=== PATIENT | female | born 2000 | race African-American/Black ===

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

== ENCOUNTER → 2018-07-19 14:39 | Outpatient (CLI) | payer MEDICAID, SELFPAY ==
--- NOTE | 2018-07-19 14:47 | US_ITS ---
US OB transvaginal HISTORY: ITS.REASON: OB T/V US for Dates ORDERING PHYSICIAN: Luis Shields MD PATIENT AGE: 17 years COMPARISON: None FINDINGS: An intrauterine gestational sac is present with a pole with a crown-rump length of 1.73cm correlating to gestational age of 8 weeks 2 days. heart tones are present with an FHR of 141 bpm's. Yolk sac is noted. The amnion and chorion have not yet fused. Adnexa: There is a bilocular left ovarian cyst measuring 8.5 x 5.5 cm. IMPRESSION: Live intrauterine gestation at 8 weeks 2 days as described above. Estimated due date by Ultrasound is 02/26/2019 Biloculated large left ovarian cyst at 8.5 x 5.5 cm
[2018-07-23 12:30] LABS: Neisseria gonorrhoeae, NAA Negative
== END ==
PROVIDERS: Visit Provider Nurse Practitioner Obstetrics & Gynecology
DX: O26.841 Uterine size-date discrepancy, first trimester (principal)
CPT/HCPCS: 76817; 87491; 87591

== ENCOUNTER → 2018-07-19 16:36 | Outpatient (CLI) | payer MEDICAID, SELFPAY | PROVIDERS: Visit Provider Nurse Practitioner Obstetrics & Gynecology | DX: Z34.90 Encounter for supervision of normal pregnancy, unspecified, unspecified trimester (principal) | CPT/HCPCS: 87491; 87591 ==

== ENCOUNTER 2018-08-26 18:25 | Emergency (ER) | payer MEDICAID, SELFPAY ==
[2018-08-26 18:35] VITALS: BP 117/70; PULSE 106; RESP 20; TEMP 37.1; O2SAT 98; BMI 30.2
[2018-08-26 18:59] LABS: Microscopic, Urine URINE MICROSCOPIC (MICROSCOPIC)
[2018-08-26 19:02] LABS: Appearance,Urine CLEAR (Clear); Bilirubin,Urine Negative (Negative); Blood, Urine 2+ (Negative); Color,Urine YELLOW (Yellow); Glucose,Urine (UA) Negative (Negative); Ketones,Urine Negative (Negative); Leukocyte Esterase,Urine Negative (Negative); Nitrate,Urine Negative (Negative); Protein,Urine Negative (Negative); Specific Gravity, Urine >= 1.030 (1.005-1.030); Urobilinogen,Urine 0.2 EU/dl (0.2)
--- NOTE | 2018-08-26 19:05 | PC.NURSE ---
pt states up to bathroom and had dark brown discharge when she wiped
--- NOTE | 2018-08-26 19:05 | HMH.EDGENADL ---
ED Disposition Clinical Impression: Vaginal bleeding during Disposition: Home, Self-Care Condition on Discharge: Good Instructions: DI for Vaginal Bleeding During Additional Instructions: Rest, no strenuous activity this weekend. No sexual intercourse for 2 days. Follow-up with Dr. Shields next week. Return to the emergency room if severe bleeding or severe pain. Referrals: Provider,Referral, [Referring] - - Critical Care Critical Care Time: No Attestation: On 08/26/18, the high probability of a clinically significant, sudden or life threatening deterioration of the following system(s) required my full and direct attention, intervention and personal management. The time I documented below is in addition to time spent performing reported procedures but includes the following listed in this critical care notation. Medical Decision Making - Daniel Inquiry Pt receiving controlled substance: No Vital Signs: 08/26/18 18:35 Temperature 98.7 F Temperature Source Oral Pulse Rate [Left Radial] 106 H Respiratory Rate 20 Blood Pressure [Right Arm] 117/70 Blood Pressure Mean [Right Arm] 85 Blood Pressure Source [Right Arm] Automatic Cuff Blood Pressure Position [Right Arm] Sitting 02 Sat by Pulse Oximetry 98 Oxygen Delivery Method Room Air - Lab Data Lab Results 08/26/18 18:55: Urine Color Yellow, Urine Appearance Clear, Urine pH 6.0, Ur Specific [place] >= 1.030, Urine Protein Negative, Urine Glucose (UA) Negative, Urine Ketones Negative, Urine Blood 2+, Urine Nitrate Negative, Urine Bilirubin Negative, Urine Urobilinogen 0.2, Ur Leukocyte Esterase Negative, Urine RBC Occasional, Urine WBC Occasional, Ur Squamous Epith Cells Occasional, Urine Bacteria Trace 08/26/18 19:18: WBC 11.7, RBC 4.29, Hgb 12.9, Hct 37.3, MCV 87.0, MCH 30.2, MCHC 34.7, RDW 13.0, Plt Count 322, MPV 7.2 L, Neut % (Auto) 77.7, Lymph % (Auto) 17.3, [place] % (Auto) 3.7, Eos % (Auto) 1.2, Baso % (Auto) 0.2, Neut # (Auto) 9.1 H, Lymph # (Auto) 2.0, [place] # (Auto) 0.4, Eos # (Auto) 0.1, Baso # (Auto) 0.0 08/26/18 19:18: Sodium 135 L, Potassium 3.3 L, Chloride 101, Carbon Dioxide 24, Anion Gap 13.3, BUN 9, Creatinine 0.67, Estimated Creat Clear 170, Estimated GFR 113, Est GFR ( Amer) 137, Glucose 96, Calcium 9.6, Total Bilirubin 0.2, AST 8 L, ALT 17, Alkaline Phosphatase 61, Total Protein 7.5, Albumin 3.1 L, Globulin 4.4 H, Albumin/Globulin Ratio 0.7 L, HCG, Quant 11952 H 08/26/18 19:18: Blood Type O Positive Result diagrams: 08/26/18 19:18 08/26/18 19:18 - Physician Consults Physician Consulted: Henry Time: 19:16 Reason -: Obstetrical Eval/Care Comment/Response: Threatened miscarriage precautions. Follow-up in the office next week. General Adult HPI - General Chief complaint: Vaginal Bleeding Stated complaint: 13 WKs Preg Bleeding Time Seen by Provider: 08/26/18 19:05 Mode of Arrival: Ambulatory Limitations: No Limitations Description of Symptoms (Recalled from ER Triage Doc. by RN): to ed per pvt car pt approx 13weeks preg c/o vag spotting starting approx 30mins scow captain states only when she wipes denies abd pain states she has had N/V since preg. - History of Present Illness HPI narrative: 30 minutes prior to arrival started having some vaginal bleeding. She says she first noted after she wiped when she went to the bathroom. Since then she only produces blood when she wipes. No blood on her underwear. No passage of clots. No pain. She is prima , 13 weeks gestation . Stopper Maker is Dr. Munroe, she has had a visit. She says they called Dr. Shields, they were told Dr. Figueroa would call back, but they did not receive a call so they came to the emergency room. - Related Data Home Medications Medication Instructions Recorded Confirmed 1 tab PO DAILY 07/19/18 08/26/18 vitamin,calcium,himbeujw-iowc-hiwok acid tablet raNITIdine HCl [Ranitidine HCl] 150 mg PO BID 08/26/18
--- NOTE | 2018-08-26 19:10 | PC.NURSE ---
paged dr reed at this time
--- NOTE | 2018-08-26 19:12 | PC.NURSE ---
MILTON LEES speaking with Dr. Figueroa
[2018-08-26 19:27] LABS: Bacteria,Urine Trace /lpf; RBC,Urine Occasional #/hpf (0-3); Squamous Epithelial Cell,Urine Occasional #/hpf (0-5); WBC,Urine Occasional #/hpf (0-3)
[2018-08-26 19:55] LABS: Basophils % 0.2 % (0.1-2.0); Eosinophils # 0.1 K/mm3 (0.0-0.4); Eosinophils % 1.2 % (0.1-12.0); Hematocrit 37.3 % (37.0-47.0); Hemoglobin 12.9 g/dL (12.2-16.2); Lymphocytes % 17.3 % (10-50); Mean Corpuscular HGB Conc 34.7 g/dL (31.8-35.4); Mean Corpuscular Hemoglobin 30.2 pg (27.0-31.2); Mean Platelet Volume 7.2 fl (7.4-10.4); Monocytes # 0.4 K/mm3 (0.1-1.0); Monocytes % 3.7 % (1.7-9.3); Neutrophils # 9.1 K/mm3 (1.8-7.8); Neutrophils % 77.7 % (37.0-80.0); Platelet Count 322 K/mm3 (142-424); Red Blood Count 4.29 M/mm3 (4.20-5.40); White Blood Count 11.7 K/mm3 (4.5-13.0)
[2018-08-26 20:12] LABS: Alanine Aminotransferase 17 U/L (12-78); Albumin Level 3.1 gm/dL (3.4-5.0); Albumin/Globulin Ratio 0.7 (1.1-1.8); Alkaline Phosphatase 61 U/L (46-116); Anion Gap 13.3 mEq/L (5-15); Aspartate Amino Transferase 8 U/L (15-37); Bilirubin,Total 0.2 mg/dL (0.2-1.0); Blood Urea Nitrogen 9 mg/dL (7-18); Calcium 9.6 mg/dL (8.5-10.1); Carbon Dioxide 24 mmol/L (21.0-32.0); Chloride 101 mmol/L (98-107); Creatinine Clearance Estimated 170 mL/min (50-200); Creatinine,Serum 0.67 mg/dL (0.55-1.02); Estimated Glomerular Filt Rate 113 ml/min (>60); GFR (African American) 137 ML/MIN (>60); Globulin 4.4 gm/dl (1.3-3.2); Glucose 96 mg/dL (74-106); HCG,Quantitative 30466 mIU/mL; Potassium 3.3 mmoL/L (3.5-5.1); Sodium 135 mmol/L (136-145); Total Protein,Serum 7.5 gm/dL (6.4-8.2)
[2018-08-26 20:26] VITALS: BP 138/75; PULSE 85; RESP 18; O2SAT 99
--- NOTE | 2018-08-26 20:26 | PC.NURSE ---
MILTON LEES at bedside.
[2018-08-26 21:12] VITALS: BP 124/64; PULSE 94; RESP 16; TEMP 36.8; O2SAT 98
== END 2018-08-26 21:13 | disposition home or self-care (01) ==
PROVIDERS: Emergency Provider Emergency Medicine; PCP Nurse Practitioner Obstetrics & Gynecology
DX: O20.9 Hemorrhage in early pregnancy, unspecified (principal); Z3A.13 13 weeks gestation of pregnancy; F12.10 Cannabis abuse, uncomplicated; F17.210 Nicotine dependence, cigarettes, uncomplicated
CPT/HCPCS: 80053; 81001; 84702; 85025; 86900; 86901; 99283

== ENCOUNTER → 2018-08-30 08:45 | Outpatient (CLI) | payer MEDICAID, SELFPAY ==
--- NOTE | 2018-08-30 09:01 | US_ITS ---
US OB transvaginal HISTORY: ITS.REASON: US OB- Vaginal Bleeding ORDERING PHYSICIAN: Luis Shields MD PATIENT AGE: 17 years COMPARISON: None FINDINGS: An intrauterine gestational sac is present with a pole with a crown-rump length of [place]-rump lengthcm correlating to gestational age of Gestational age. heart tones are present with an FHR of Heart rate bpm's. Yolk sac is noted. The amnion and chorion have not yet fused. Adnexa: Adnexa. IMPRESSION: Live intrauterine gestation at 9 weeks 2 days as described above. Estimated due date by Ultrasound is US OB transvaginal: INDICATION: ITS.REASON: US OB- Vaginal Bleeding ORDERING PHYSICIAN: Luis Shields MD PATIENT AGE: 17 years TECHNIQUE: ultrasound transabdominal scanning. COMPARISON: No previous relevant studies. FINDINGS: There is a single live fetus present in transverse position. heart and body motion noted. Cervix appears closed and measures 4 cm in length. Facet is posterior and high grade one.. Measurements: Average ultrasound age 14w2d. Gestational Age `4w2d. Estimated due date by ultrasound age 1002/26/2019. Estimated weight 92g grams. BPD = 14w3d OFD = 14w3d HC = 14w2d AC = 14w1d FL = 14w2d Growth Percentile= 28% Heart Rate = 147 HC/AC is 1.22 (1.14-1.31). CI is 77% (70-86%). FL/BPD is 57%. FL/AC is 19%. There are bilateral ovarian cysts with a septated cyst on the left measuring 8 x 6 cm. A 2.4 cm cyst is present on the right. IMPRESSION: Live intrauterine gestation at 14 weeks 2 days. Posterior placenta. No retroplacental hemorrhage or previa. Large septated left ovarian cyst at 8 x 6 cm.
== END ==
PROVIDERS: Visit Provider Nurse Practitioner Obstetrics & Gynecology
DX: O46.90 Antepartum hemorrhage, unspecified, unspecified trimester (principal)
CPT/HCPCS: 76817

== ENCOUNTER → 2018-09-05 14:58 | Outpatient (CLI) | payer MEDICAID, SELFPAY | PROVIDERS: Visit Provider Nurse Practitioner Obstetrics & Gynecology | DX: Z34.00 Encounter for supervision of normal first pregnancy, unspecified trimester (principal); Z36.0 Encounter for antenatal screening for chromosomal anomalies | CPT/HCPCS: 36415 ==

== ENCOUNTER → 2018-10-05 14:36 | Outpatient (CLI) | payer MEDICAID, SELFPAY ==
--- NOTE | 2018-10-05 14:39 | US_ITS ---
US OB /maternal detail: INDICATION: ITS.REASON: US OB Complete ORDERING PHYSICIAN: Luis Shields MD PATIENT AGE: 18 years TECHNIQUE: ultrasound transabdominal scanning. COMPARISON: No previous relevant studies. FINDINGS: Single viable intrauterine gestation. Breech position. Placenta: Posterior placenta grade 1. There is average amount fluid. The cervix appears satisfactory. Closed and measuring 4 cm in length. Complete survey performed and was unremarkable on the submitted images as in PACS. No discrete anomalies identified on survey imaging by technologist. Active fetus. Three-vessel cord with satisfactory umbilical cord insertion. 4- chamber heart noted. Survey of brain & ventricles unremarkable. Face and neck survey unremarkable. Diaphragm and chest views unremarkable. Abdomen: Both kidneys noted and unremarkable. Stomach noted and satisfactory. Spine: Survey of the spine satisfactory with no anomalies identified nor imaged. Both arms and legs noted. Amniotic Fluid: Adequate. Maternal adnexa: No significant findings. Measurements: Average ultrasound age 19w4d. Gestational Age 19w3d. Estimated due date by ultrasound age 1002/25/2019. Estimated weight 300 grams. BPD = 19w3d OFD = 19w6d HC = 19w0d AC = 19w5d FL = 19w5d Growth Percentile= 54% Heart Rate = 144 Cerebellum = 19w2d Humerus = 19w6d HC/AC is 1.12 (1.09-1.26). CI is 78% (70-86%). FL/BPD is 70%. FL/AC is 22%. Incidental note is made of a 7 x 4 x 5 cm complex left ovarian cyst which contains low-level internal echoes consistent with hemorrhagic cyst . IMPRESSION: 1. There is a single live fetus in breech presentation with an average ultrasound age of 19 weeks and 4 days. All parameters correlate. No obvious anomalies. Fetus is active. Please see above for detailed. 2. Complex 7 x 4 x 5 cm left ovarian cyst
== END ==
PROVIDERS: Visit Provider Nurse Practitioner Obstetrics & Gynecology
DX: Z36.0 Encounter for antenatal screening for chromosomal anomalies (principal)
CPT/HCPCS: 76811

== ENCOUNTER 2018-10-20 12:36 | Emergency (ER) | payer MEDICAID, SELFPAY ==
[2018-10-20 12:53] VITALS: BP 116/69; PULSE 84; RESP 18; TEMP 37.7; O2SAT 100; BMI 32.2
--- NOTE | 2018-10-20 13:06 | HMH.EDUTC ---
[facility] [place] Clinical Impression: Acute bronchitis Qualifiers: Bronchitis organism: unspecified organism Qualified Code(s): J20.9 - Acute bronchitis, unspecified Sinusitis Qualifiers: Sinusitis location: unspecified location Chronicity: acute Recurrence: non-recurrent Qualified Code(s): J01.90 - Acute sinusitis, unspecified Disposition: Home, Self-Care Condition on Discharge: Good Instructions: Sinusitis, Acute Bronchitis, DI for Sinusitis, DI for Acute Bronchitis Additional Instructions: Call your OB doctor and let them know about you being sick and taking antibiotics. Take the medications as prescribed. Follow up with your regular doctor. GO TO THE ER IF YOU HAVE WORSENING SYMPTOMS Prescriptions: Azithromycin [Z-Prashant 250mg Tab] 250 mg PO UD DOSE PK #6 tab Referrals: Provider,Referral, MD [Primary Care Provider] - Time of Disposition: 13:14 Medical Decision Making - Medical Records Medical records reviewed: Yes: I reviewed the patient's medical records. - Daniel Inquiry Pt receiving controlled substance: No Daniel was queried for this patient: No Vital Signs: 10/20/18 12:53 10/20/18 13:18 Temperature 99.8 F H 99.8 F H Temperature Source Oral Oral Pulse Rate 84 Pulse Rate [Left Radial] 84 Respiratory Rate 18 18 Blood Pressure 116/69 Blood Pressure [Right Arm] 116/69 Blood Pressure Mean [Right Arm] 84 Blood Pressure Source Automatic Cuff Blood Pressure Source [Right Arm] Automatic Cuff Blood Pressure Position Sitting Blood Pressure Position [Right Arm] Sitting 02 Sat by Pulse Oximetry 100 Oxygen Delivery Method Room Air Room Air [facility] [place] - General Stated complaint: fever coughing and aches Time Seen by Provider: 10/20/18 13:07 Mode of Arrival: Ambulatory Source of Information: Patient Limitations: No Limitations Description of Symptoms (Recalled from Triage Doc. by RN): CHILLS ON AND OFF, COUGH, RUNNY NOSE, 21 WEEKS HEENT Symptoms (Recalled from RN notes): Yes Resp Symptoms (Recalled from RN notes): Yes Skin Symptoms (Recalled from RN notes): No MS Symptoms (Recalled from RN notes): No Functional Status (Recalled from RN notes): WNL - Related Data Home Medications Medication Instructions Recorded Confirmed 1 tab PO DAILY 07/19/18 09/28/18 vitamin,calcium,ifqtajif-ozir-axhpb acid tablet raNITIdine HCl [Ranitidine HCl] 150 mg PO BID 08/26/18 09/28/18 Previous Rx's Medication Instructions Recorded promethazine 12.5 mg tablet 12.5 mg PO TID PRN #30 tab 08/17/18 ondansetron HCl 4 mg tablet 4 mg PO .Q6hr PRN 5 Days #20 tab 08/30/18 Azithromycin [Z-Prashant 250mg Tab] 250 mg PO UD DOSE PK #6 tab 10/20/18 Allergies Allergy/AdvReac Type Severity Reaction Status Date / Time No Known Allergies Allergy Verified 09/28/18 16:21 - Worker's Comp Is this a Worker's Comp case?: No [facility] History - Hepatitis A Screen Drug use history?: No High risk sexual behaviors?: No History of sexually transmitted infection?: No Currently employed?: No Childcare worker?: No Do you have indoor plumbing?: Yes Do you have electricity?: Yes Attestation statement:: This patient has been screened for Hepatitis A risk factors. I have reviewed the patient's past medical history: Yes Medical History: Denies:: Cancer, Diabetes Mellitus Type 1, Diabetes Mellitus Type 2, Hypertension, MRSA Laterality Cases: Bilateral: Tonsillectomy Amputation: No Fractures: No - Social History Educational Level: Completed High School Smoking Status: Never smoker Tobacco Type: cigarettes Alcohol Intake: never Substance Use Type: marijuana Occupational Status: unemployed Housing: house - Psychiatric History Expresses thoughts of harming self/others: None Suicide Plan Description: No Plan Family Hx:: No significant family history ROS Obtained: Yes All systems reviewed & no additional complaints - Genitourinary Female Genitourinary: Denies abnormal vaginal blee
--- NOTE | 2018-10-20 13:10 | ED_ITS ---
[facility] [place] Disposition Clinical Impression: Acute bronchitis Qualifiers: Bronchitis organism: unspecified organism Qualified Code(s): J20.9 - Acute bronchitis, unspecified Sinusitis Qualifiers: Sinusitis location: unspecified location Chronicity: acute Recurrence: non- recurrent Qualified Code(s): J01.90 - Acute sinusitis, unspecified Disposition: Home, Self-Care Condition on Discharge: Good Instructions: Sinusitis, Acute Bronchitis, DI for Sinusitis, DI for Acute Bronchitis Additional Instructions: Call your OB doctor and let them know about you being sick and taking antibiotics. Take the medications as prescribed. Follow up with your regular doctor. GO TO THE ER IF YOU HAVE WORSENING SYMPTOMS Prescriptions: Azithromycin [Z-Prashant 250mg Tab] 250 mg PO UD DOSE PK #6 tab Referrals: Provider,Referral, MD [Primary Care Provider] - Time of Disposition: 13:14 Medical Decision Making - Medical Records Medical records reviewed: Yes: I reviewed the patient's medical records. - Daniel Inquiry Pt receiving controlled substance: No Daniel was queried for this patient: No Vital Signs: 10/20/18 12:53 10/20/18 13:18 Temperature 99.8 F H 99.8 F H Temperature Source Oral Oral Pulse Rate 84 Pulse Rate [Left Radial] 84 Respiratory Rate 18 18 Blood Pressure 116/69 Blood Pressure [Right Arm] 116/69 Blood Pressure Mean [Right Arm] 84 Blood Pressure Source Automatic Cuff Blood Pressure Source [Right Arm] Automatic Cuff Blood Pressure Position Sitting Blood Pressure Position [Right Arm] Sitting 02 Sat by Pulse Oximetry 100 Oxygen Delivery Method Room Air Room Air [facility] [place] HPI - General Stated complaint: fever coughing and aches Time Seen by Provider: 10/20/18 13:07 Mode of Arrival: Ambulatory Source of Information: Patient Limitations: No Limitations Description of Symptoms (Recalled from Triage Doc. by RN): CHILLS ON AND OFF, COUGH, RUNNY NOSE, 21 WEEKS HEENT Symptoms (Recalled from RN notes): Yes Resp Symptoms (Recalled from RN notes): Yes Skin Symptoms (Recalled from RN notes): No MS Symptoms (Recalled from RN notes): No Functional Status (Recalled from RN notes): WNL - Related Data Home Medications Medication Instructions Recorded Confirmed 1 tab PO DAILY 07/19/18 09/28/18 vitamin,calcium,fiepcgnk-kihu-bekkv acid tablet raNITIdine HCl [Ranitidine HCl] 150 mg PO BID 08/26/18 09/28/18 Previous Rx's Medication Instructions Recorded promethazine 12.5 mg tablet 12.5 mg PO TID PRN #30 tab 08/17/18 ondansetron HCl 4 mg tablet 4 mg PO .Q6hr PRN 5 Days #20 tab 08/30/18 Azithromycin [Z-Prashant 250mg Tab] 250 mg PO UD DOSE PK #6 tab 10/20/18 Allergies Allergy/AdvReac Type Severity Reaction Status Date / Time No Known Allergies Allergy Verified 09/28/18 16:21 - Worker's Comp Is this a Worker's Comp case?: No [facility] History - Hepatitis A Screen Drug use history?: No High risk sexual behaviors?: No History of sexually transmitted infection?: No Currently employed?: No Childcare worker?: No Do you have indoor plumbing?: Yes Do you have electricity?: Yes [place]
[2018-10-20 13:18] VITALS: BP 116/69; PULSE 84; RESP 18; TEMP 37.7; O2SAT 100
== END 2018-10-20 13:19 | disposition home or self-care (01) ==
LOC: ER 12:39 → UTC 12:41
PROVIDERS: Emergency Provider Nurse Practitioner Family
DX: J20.9 Acute bronchitis, unspecified (principal); J01.90 Acute sinusitis, unspecified; Z3A.21 21 weeks gestation of pregnancy
CPT/HCPCS: 99201

== ENCOUNTER 2018-12-11 20:16 | Outpatient (CLI) | payer MEDICAID, SELFPAY ==
[2018-12-11 20:32] VITALS: BMI 38.2
[2018-12-11 21:38] LABS: Microscopic, Urine URINE MICROSCOPIC (MICROSCOPIC)
[2018-12-11 21:42] VITALS: BP 129/60; PULSE 90; RESP 16; TEMP 37.1; O2SAT 98; BMI 38.2
[2018-12-11 21:48] LABS: Appearance,Urine CLEAR (Clear); Bilirubin,Urine Negative (Negative); Blood, Urine Negative (Negative); Color,Urine YELLOW (Yellow); Glucose,Urine (UA) Negative (Negative); Ketones,Urine Negative (Negative); Leukocyte Esterase,Urine Negative (Negative); Nitrate,Urine Negative (Negative); Protein,Urine Negative (Negative); Specific Gravity, Urine >= 1.030 (1.005-1.030); Urobilinogen,Urine 0.2 EU/dl (0.2)
[2018-12-11 21:50] LABS: Amphetamine/Metha Screen,Urine Negative ng/mL (<1000); Barbiturates Screen,Urine Negative ng/mL (<200); Benzodiazepines Screen,Urine Negative ng/mL (<200); Cannabinoid Screen,Urine Positive ng/mL (<50); Cocaine Screen,Urine Negative ng/mL (<300); Methadone Screen,Urine Negative ng/mL (<300); Opiate Screen,Urine Negative ng/mL (<300); Phencyclidine Screen,Urine Negative ng/mL (<25)
== END 2018-12-11 22:10 | disposition home or self-care (01) ==
LOC: OBOUT 20:21 → OB 20:22
PROVIDERS: Visit Provider Obstetrics & Gynecology
DX: O26.853 Spotting complicating pregnancy, third trimester (principal); Z3A.29 29 weeks gestation of pregnancy
CPT/HCPCS: 59025; 80305; 81001

== ENCOUNTER 2020-02-02 15:46 | Emergency (ER) | payer OTHER, SELFPAY ==
[2020-02-02 15:47] VITALS: BP 138/95; PULSE 71; RESP 18; TEMP 36.5; O2SAT 99; BMI 36.8
[2020-02-02 15:58] VITALS: BP 149/86; PULSE 60; O2SAT 100
--- NOTE | 2020-02-02 16:03 | HMH.EDGENADL ---
ED Disposition Clinical Impression: Cholelithiasis Qualifiers: Cholelithiasis location: gallbladder Cholecystitis presence: without cholecystitis Biliary obstruction: with biliary obstruction Qualified Code(s): K80.21 - Calculus of gallbladder without cholecystitis with obstruction Disposition: Home, Self-Care Condition on Discharge: Fair Instructions: DI for Gallstones Additional Instructions: Percocet as needed for pain. Zofran as needed for nausea and vomiting. Low-fat, bland diet. Call Dr. Ha's office at 8 AM Wednesday morning to arrange appointment to be seen on Wednesday by him in his office. Nothing to eat or drink after midnight Wednesday night until you see Dr. Ha. Turn to the emergency room if intolerable pain, persistent vomiting, fever greater than 100 degrees, or jaundice. Additional instructions for CONTROLLED SUBSTANCES: You have been prescribed a medication that is a controlled substance. Controlled substances include pain medications known as opiates and sedative nerve medications known as benzodiazepines. Tramadol, fioricet, and gabapentin are also controlled substances. Some common opiates include: Codeine (such as Tylenol #3) Hydrocodone (Vicodin, Lortab, Lorcet, [place]) Oxycodone (Percocet, Percodan, Oxycodone, Oxy IR) Some common benzodiazepines include: Diazepam (Valium) Lorazepam (Ativan) Alprazolam (Xanax) Clonazepam (Klonopin) Oxazepam (Serax) All of these controlled substances are highly addictive and frequently abused. Misuse can and frequently does lead to addiction as well as overdose and . Medication should be stored in a locked cabinet or other secure storage unit. Do not store the medication in a motor vehicle. Short term supplies, 3 days or less, are prescribed because of the highly addictive nature of the medication. Any of the controlled substance medication NOT taken should be disposed of properly and NOT SAVED. The recommended method of disposing of unused medications is: Place the medicines in a sealable plastic bag. If the medicine is a solid, crush it or add water to dissolve it. Add something undesirable (cat litter, coffee grounds, etc.) Dispose of sealed bag in household trash Do not flush or pour unused medicines down a sink or drain. Controlled substances should not be shared, given away or sold. Because of the addictive nature and frequent abuse, these medications are sometimes stolen. These medications should be kept in a safe place where they cannot be stolen. Do not keep them in your car or purse. Lost or stolen prescriptions for controlled substances WILL NOT BE REFILLED in this emergency department, regardless of whether a police report was filed. Prescriptions: Oxycodone HCl/Acetaminophen [Percocet 5/325mg tablet] 1 tab PO Q6HP PRN #10 tab PRN Reason: Moderate To Severe Pain Transmission Status: Received by [facility] # Ondansetron [Zofran 4mg ODT] 4 mg PO TIDP PRN #10 tab.rapdis PRN Reason: Nausea And Vomiting Transmission Status: Received by [facility] # Referrals: Carine Tucker DO [Primary Care Provider] - Samm Ha MD [Staff Physician] - (Wednesday) - Critical Care Critical Care Time: No Attestation: On 02/02/20, the high probability of a clinically significant, sudden or life threatening deterioration of the following system(s) required my full and direct attention, intervention and personal management. The time I documented below is in addition to time spent performing reported procedures but includes the following listed in this critical care notation. Medical Decision Making - Medical Records Medical records reviewed: Yes: I reviewed the patient's medical records. - Daniel Inquiry Pt receiving controlled substance: Yes Daniel was queried for this patient: Yes Reference #:: [id number] Risks and benefits of using a controlled substance: were discussed with pt by me Comment
--- NOTE | 2020-02-02 16:16 | CT_ITS ---
PROCEDURE: CT ABDOMEN PELVIS W CON CLINICAL INDICATION: abdo pain Right upper quadrant pain COMPARISON: No exams were available for comparison TECHNIQUE: IV Contrast: 75ML OPTIRAY 350 Oral Contrast None Axial images obtained with sagittal and coronal reformats. All CT scans at the facility use one or more dose reduction, viz: automated exposure control, ma/kV adjustment per patient size (including targeted exams where dose is matched to indication, i.e. head), or iterative reconstruction technique. FINDINGS: LOWER THORAX: No acute finding ABDOMEN & PELVIS: Cholelithiasis is noted. The liver, spleen, adrenal glands, pancreas, and kidneys have an unremarkable appearance. There is a circum aortic left renal vein. No intestinal obstruction or free air. There appears to be at least 1 diverticulum of the sigmoid colon. No evidence of diverticulitis. There is a small umbilical hernia containing fat. No evidence of appendicitis. There is a 3.6 cm left ovarian cyst. No free fluid. No acute bony anomalies. IMPRESSION: 1. Cholelithiasis. 2. 3.6 cm left ovarian cyst. Dictated by: Trevon Murrieta MD 02/03/2020 07:16 Trevon Murrieta MD in [facility] 02/03/2020 07:16
[2020-02-02 16:19] VITALS: PULSE 60; O2SAT 99
--- NOTE | 2020-02-02 16:31 | PC.NURSE ---
v/s delayed due to IV insertion
[2020-02-02 16:37] VITALS: BP 123/83; PULSE 68; O2SAT 96
[2020-02-02 16:50] LABS: Microscopic, Urine URINE MICROSCOPIC (MICROSCOPIC)
[2020-02-02 16:53] LABS: Appearance,Urine CLEAR (Clear); Bilirubin,Urine 1+ (Negative); Blood, Urine Negative (Negative); Color,Urine YELLOW (Yellow); Glucose,Urine (UA) Negative (Negative); Ketones,Urine Negative (Negative); Leukocyte Esterase,Urine Negative (Negative); Nitrate,Urine Negative (Negative); Protein,Urine Negative (Negative); Urobilinogen,Urine 0.2 EU/dl (0.2)
[2020-02-02 16:54] LABS: Urine Pregnancy, HCG Qual. Negative (Negative)
[2020-02-02 16:55] LABS: Chloride 104 mmol/L (98-107)
[2020-02-02 16:56] LABS: Potassium 3.7 mmoL/L (3.5-5.1); Sodium 142 mmol/L (136-145)
[2020-02-02 16:58] LABS: Alanine Aminotransferase 314 U/L (12-78); Alkaline Phosphatase 146 U/L (38-126); Amylase 83 U/L (30-110); Anion Gap 10.7 mEq/L (5-15); Aspartate Amino Transferase 710 U/L (14-36); Bilirubin,Total 1.4 mg/dl (0.2-1.3); Blood Urea Nitrogen 10 mg/dl (7-17); Carbon Dioxide 31 mmol/L (22.0-30.0); Creatinine Clearance Estimated 152 mL/min (50-200); Estimated Glomerular Filt Rate 79 ml/min (>60); GFR (African American) 96 ML/MIN (>60); Glucose 120 mg/dl (74-100); Lipase 72 U/L (23-300)
[2020-02-02 16:59] LABS: Albumin Level 4.1 g/dl (3.5-5.0); Albumin/Globulin Ratio 1.2 (1.1-1.8); Calcium 9.7 mg/dl (8.4-10.2); Globulin 3.5 g/dL (1.3-3.2); Total Protein,Serum 7.6 g/dl (6.3-8.2)
[2020-02-02 17:33] VITALS: BP 131/85; PULSE 77; O2SAT 96
--- NOTE | 2020-02-02 17:42 | PC.NURSE ---
Dr Dilcia edwards.
--- NOTE | 2020-02-02 17:44 | PC.NURSE ---
Dr Fairbanks speaking with Dr. Ha
[2020-02-02 17:48] LABS: Basophils % 0.3 % (0.1-2.0); Eosinophils # 0.1 K/mm3 (0.0-0.4); Eosinophils % 0.7 % (0.1-12.0); Hematocrit 46.1 % (37.0-47.0); Hemoglobin 15.4 g/dL (12.2-16.2); Lymphocytes # 1.5 K/mm3 (0.7-4.5); Lymphocytes % 17.5 % (10-50); Mean Corpuscular HGB Conc 33.4 g/dL (31.8-35.4); Mean Corpuscular Hemoglobin 29.8 pg (27.0-31.2); Mean Corpuscular Volume 89.1 fl (81-99); Mean Platelet Volume 7.8 fl (7.4-10.4); Monocytes # 0.4 K/mm3 (0.1-1.0); Neutrophils # 6.7 K/mm3 (1.8-7.8); Neutrophils % 76.5 % (37.0-80.0); Platelet Count 393 K/mm3 (142-424); Red Blood Count 5.17 M/mm3 (4.20-5.40); Red Cell Distribution Width 13.9 % (11.5-17.5); White Blood Count 8.7 K/mm3 (4.8-10.8)
[2020-02-02 18:22] VITALS: BP 130/85; PULSE 55; RESP 17; TEMP 36.5; O2SAT 96
== END 2020-02-02 18:24 | disposition home or self-care (01) ==
PROVIDERS: Emergency Provider Emergency Medicine; PCP Pediatrics
DX: K80.21 Calculus of gallbladder without cholecystitis with obstruction (principal); K21.9 Gastro-esophageal reflux disease without esophagitis
CPT/HCPCS: 74177; 80053; 81001; 81025; 82150; 83690; 85025; 96365; 96375; 99284; J2405; Q9967

== ENCOUNTER → 2020-02-05 10:53 | Outpatient (CLI) | payer OTHER, SELFPAY ==
--- NOTE | 2020-02-05 10:59 | US_ITS ---
PROCEDURE: US GALLBLADDER CLINICAL INDICATION: gallbladder pain COMPARISON: CT CT ABDOMEN PELVIS W CON from 02/02/2020 FINDINGS: Pancreas: Unremarkable/Not well seen Liver: Unremarkable. There is appropriate direction of blood flow within a non dilated portal vein. Right kidney: Unremarkable appearing. No hydronephrosis. Gallbladder: There is a gallstone present. No gallbladder wall thickening, pericholecystic fluid, or biliary dilatation is evident. IMPRESSION: Cholelithiasis Dictated by: Trevon Murrieta MD 02/05/2020 15:13 Trevon Murrieta MD in [facility] 02/05/2020 15:13
== END ==
PROVIDERS: Visit Provider Surgery
DX: K80.20 Calculus of gallbladder without cholecystitis without obstruction (principal)
CPT/HCPCS: 76705

== ENCOUNTER → 2020-02-05 13:52 | Outpatient (REF) | payer SELFPAY | LOC: UTC.OUT 13:52 | PROVIDERS: Visit Provider Nurse Practitioner | DX: Z02.1 Encounter for pre-employment examination (principal) ==

== ENCOUNTER → 2020-02-07 10:10 | Outpatient (CLI) | payer OTHER, SELFPAY ==
[2020-02-07 10:53] LABS: Basophils % 0.4 % (0.1-2.0); Eosinophils # 0.2 K/mm3 (0.0-0.4); Eosinophils % 2.4 % (0.1-12.0); Hematocrit 44.6 % (37.0-47.0); Hemoglobin 14.3 g/dL (12.2-16.2); Lymphocytes # 2.6 K/mm3 (0.7-4.5); Lymphocytes % 30.9 % (10-50); Mean Corpuscular Hemoglobin 29.3 pg (27.0-31.2); Mean Corpuscular Volume 91.4 fl (81-99); Mean Platelet Volume 7.5 fl (7.4-10.4); Monocytes # 0.4 K/mm3 (0.1-1.0); Monocytes % 4.3 % (1.7-9.3); Neutrophils # 5.2 K/mm3 (1.8-7.8); Neutrophils % 62.1 % (37.0-80.0); Platelet Count 367 K/mm3 (142-424); Red Blood Count 4.88 M/mm3 (4.20-5.40); Urine Pregnancy, HCG Qual. Negative (Negative); White Blood Count 8.3 K/mm3 (4.8-10.8)
[2020-02-07 12:32] LABS: Chloride 103 mmol/L (98-107); Potassium 3.9 mmoL/L (3.5-5.1); Sodium 140 mmol/L (136-145)
[2020-02-07 12:35] LABS: Alanine Aminotransferase 189 U/L (12-78); Albumin/Globulin Ratio 1.4 (1.1-1.8); Alkaline Phosphatase 129 U/L (38-126); Anion Gap 11.9 mEq/L (5-15); Aspartate Amino Transferase 36 U/L (14-36); Bilirubin,Total 0.4 mg/dl (0.2-1.3); Blood Urea Nitrogen 10 mg/dl (7-17); Calcium 9.5 mg/dl (8.4-10.2); Carbon Dioxide 29 mmol/L (22.0-30.0); Estimated Glomerular Filt Rate 91 ml/min (>60); GFR (African American) 110 ML/MIN (>60); Globulin 2.8 g/dL (1.3-3.2); Glucose 113 mg/dl (74-100); Total Protein,Serum 6.8 g/dl (6.3-8.2)
[2020-02-07 13:25] LABS: Coronavirus 19 IgG Antibody Positive (Negative); Coronavirus 19 IgM Antibody Negative (Negative)
== END ==
PROVIDERS: Visit Provider Surgery
DX: K80.20 Calculus of gallbladder without cholecystitis without obstruction (principal); Z01.89 Encounter for other specified special examinations; Z01.84 Encounter for antibody response examination; U07.1 COVID-19
CPT/HCPCS: 36415; 80053; 81025; 85025; 86328

== ENCOUNTER 2020-02-08 06:05 | Day surgery (SDC) | payer OTHER, SELFPAY ==
[2020-02-06 10:53] VITALS: BMI 36.8
[2020-02-08] VITALS (12 sets, daily range): BP systolic 128–158; BP diastolic 67–90; PULSE 69–97; RESP 14–18; TEMP 36.3–43; O2SAT 96–100
--- NOTE | 2020-02-08 08:28 | XR_ITS ---
PROCEDURE: XR CHOLANGIOGRAM OPERATIVE Referring Doctor: Samm Ha Patient Age:19Y CLINICAL INDICATION: CHOLANGIOGRAM IN OR Sero pouring 3 seconds fluoroscopy time COMPARISON: CT CT ABDOMEN PELVIS W CON from 02/02/2020 FINDINGS: . Two images are submitted from an OR cholangiogram. Injection of through the residual cystic duct shows a normal-appearing common duct. No dilatation. No filling defects identified. Good detail and resolution on these 2 images. The contrast readily flows into the descending duodenum. IMPRESSION: . OR cholangiogram reveals no evidence of residual common duct stone or lesion. Satisfactory normal appearing common duct. But no dilatation Dictated by: Christofer Gastelum MD 02/08/2020 17:27 Christofer Gastelum MD in [facility] 02/08/2020 17:27
--- NOTE | 2020-02-08 09:03 | HMH.OPNOTE ---
Date of procedure: 02/08/20 Pre-op Diagnosis:: Symptomatic gallstones Post-op Diagnosis:: Same Procedure performed:: Laparoscopic cholecystectomy with intraoperative cholangiogram Surgeon:: Samm Ha MD KEY RINGER:: Og Bonilla Anesthesia: GETA Estimated blood loss (mL): 20 Clinical Note:: Patient is a pleasant 19-year-old female referred by the emergency department for gallstones. She does have a relatively long history up to about 2 years of symptoms possibly consistent with symptomatic gallbladder disease. However, she felt that this may be reflux. She had been having some issues prior to . She is 11 months at this time. She awoke from sleep on 02/02/2020 with acute epigastric pain radiating to the right upper quadrant with associated sweatiness, diaphoresis. She has had nausea. She states that she had similar attacks about 3 times per week but not as severe. During the significant attack on 02/02/2020 she tried several antacids prior to presentation to the emergency department without relief. When she was seen and evaluated in the emergency department she had a CT scan done which revealed findings of gallstones. She did have some elevation of transaminases. She was able to be managed as an outpatient with early outpatient follow-up. She underwent a gallbladder ultrasound on 02/05/2020 and seen in the office following that. Plan was made for laparoscopic cholecystectomy with possible intraoperative cholangiogram given the elevation of transaminases. Repeat blood work showed dramatic improvement in LFTs. Operative findings:: She had a distended thickened gallbladder with omental adhesions. The distal anatomy was unusual and there appeared to be possibly a branching duct from the cystic duct. Therefore intraoperative cholangiogram was performed. Operative note:: Consent was obtained and patient was taken to the operating room. She was positioned in a supine position. General anesthesia was induced via endotracheal tube. Abdomen was prepped and draped in the standard surgical fashion. Subumbilical skin incision was made. Dissection was carried down to the abdominal fascia. Veress needle was inserted but good insufflation pressures could not be achieved. Therefore through a left subcostal small incision Veress needle was inserted and CO2 pneumoperitoneum was achieved to 15 mmHg. 11 mm optical trocar was inserted at the umbilicus. She was positioned in reverse Trendelenburg left side down. A couple of 5 mm trochars were inserted in the right upper abdomen. 10 mm trocar was inserted in the epigastrium. Gallbladder was grasped retracted anteriorly and superiorly over the dome of the liver. Omental adhesions were taken down using blunt dissection. Infundibulum/Patel's pouch of the gallbladder was retracted anterior laterally. Tedious prolonged dissection was carried out at the neck of the gallbladder. Cystic duct and cystic artery were identified and isolated. Hemoclip was placed on the cystic duct. However, further inspection revealed concerns for possible branching duct from the apparent cystic duct. Therefore this clip was removed. Dissection was carried out higher onto the neck of the gallbladder. Given this possible unusual ductal anatomy plan was made to proceed with intraoperative cholangiogram. Dissection was carried out more proximal to the gallbladder on the cystic duct. The gallbladder was then clipped at the neck. Taut cholangiocatheter introducer was inserted through the incision in the right subcostal region. Small incision was made in the cystic duct and cholangiocatheter was manipulated into the cystic duct port was secured with a Hemoclip. Intraoperative cholangiogram was performed using C arm fluoroscopy. This revealed normal ductal anatomy with no evidence of any filling defect or obstruction. Patient was then repositioned. Hemoclip was removed. The cystic duct was then multiply cli
--- NOTE | 2020-02-08 09:06 | HMH.ANESCL ---
[facility] Anesthesia Checklist - Patient Identification Patient Identification: Arm Band, Verbal (Name & ) - Structural Data Admitted From: Home Planned Operative Procedure/s: Laparoscopic cholecystectomy Consent for Planned Operative Procedure(s) Verified: Yes Verified Documents: Surgical Consent, History and Physical - NPO Status Verified Time NPO: 22:00 - Chart Verification Results Verified: CBC, BMP, HCG - Additional verifications Patient : No Anesthesia Reactions: No Hx Blood Transfusions: No Blood Transfusion Reaction: No - Airway Assessment C-Spine Mobility Assessed: Yes TMJ Mobility Assessed: Yes Dentition: Good Dentition - Neurological Assessment Level of Consciousness: Awake, Alert, Appropriate, Follows Commands Hx Seizures: No Numbness or tingling in extremities: No - Anesthesia Plan Anesthesia Risk discussed: Yes Anesthesia Plan: Verified ASA Class: II Anesthesia Type: General [facility] History I have reviewed the patient's past medical history: Yes Medical History: Denies:: Cancer, Diabetes Mellitus Type 1, Diabetes Mellitus Type 2, Hypertension, Internal Pacemaker, MRSA, Seizures *Have you ever received a pneumonia vaccine?: No *Have you received a flu vaccine this season?: No Other Medical History: Denies: Blood Transfusion Reaction Comment:: Obesity Anesthesia experience/problems:: Hx awareness Laterality Cases: Bilateral: Tonsillectomy Other Surgeries: No: , Pacemaker Amputation: No Fractures: No - *Social History Last grade of school completed: High school graduate Smoking Status: Never smoker Tobacco Type: cigarettes Alcohol Intake: current Alcohol Intake Frequency:: holidays/special occasions only Substance Use Type: marijuana (Daily) *Occupational Status:: other Housing: house *Travel in the last 8 weeks: None Family Hx:: No significant family history
--- NOTE | 2020-02-08 09:08 | P.PN_ITS ---
[facility] Anesthesia Record Part I Intake, IV Amount: 1,200 Estimated blood loss (mL): 25 Urine output (mL): 0 (NM) Blood Products used (#): none Blood Pressure: 154/89 SaO2: 97 Pulse Rate: 97 Respiratory Rate: 14 Temperature: 98.6 F Patient is:: Awake, Drowsy, Stable Stable to PACU at:: 09:02
--- NOTE | 2020-02-08 13:08 | P.PN_ITS ---
[facility] Anesthesia Record Part II Discharge Time: 09:32 Destination: [facility] PACU nurse assessment reviewed?: Yes Patient Condition:: Good Anesthesia Complications:: None Swallowing reflex intact?: Yes Cyanosis?: No Blood Pressure: 149/79 Pulse Rate: 90 Temperature: 98.6 F Mental Status: Alert & Oriented Pain level:: 0 Nausea and/or vomitting:: None Intake, IV Amount: 1,000
== END 2020-02-08 10:23 | disposition home or self-care (01) ==
PROVIDERS: Visit Provider Surgery
PROC: 0FT44ZZ Resection of Gallbladder, Percutaneous Endoscopic Approach (ICD-10-PCS; CPT 47562; principal; 2020-02-08 07:30)
DX: K80.20 Calculus of gallbladder without cholecystitis without obstruction (principal); K66.0 Peritoneal adhesions (postprocedural) (postinfection); Q44.7 Other congenital malformations of liver; F12.90 Cannabis use, unspecified, uncomplicated; Z90.89 Acquired absence of other organs
CPT/HCPCS: 47563; 74300; 96374; J2405; J2710

== ENCOUNTER 2020-02-15 10:06 | Emergency (ER) | payer OTHER, SELFPAY ==
[2020-02-15 10:15] VITALS: BP 120/48; PULSE 82; RESP 17; TEMP 36.7; O2SAT 97; BMI 36.8
--- NOTE | 2020-02-15 10:28 | HMH.EDGENADL ---
ED Disposition Clinical Impression: Encounter for wound re-check, Nausea, Recurrent upper abdominal pain with history of cholecystectomy Disposition: Home, Self-Care Condition on Discharge: Good Instructions: DI for Cholecystectomy Additional Instructions: You have been evaluated for nausea after cholecystectomy. Please eat bland foods. Take Zofran for nausea. Follow-up with your primary care doctor and surgeon. Prescriptions: ondansetron HCL [Ondansetron 4mg tab*] 4 mg PO Q6 PRN #12 tab PRN Reason: Nausea Transmission Status: Pending to [facility] #[id number] Referrals: PCP,No [Primary Care Provider] - Time of Disposition: 12:05 - Critical Care Critical Care Time: No Attestation: On 02/15/20, the high probability of a clinically significant, sudden or life threatening deterioration of the following system(s) required my full and direct attention, intervention and personal management. The time I documented below is in addition to time spent performing reported procedures but includes the following listed in this critical care notation. Medical Decision Making - Medical Records Medical records reviewed: Yes: I reviewed the patient's medical records. - Daniel Inquiry Pt receiving controlled substance: No Vital Signs: 02/15/20 10:15 02/15/20 11:26 02/15/20 11:46 Temperature 98.0 F Temperature Source Oral Pulse Rate [Right Brachial] 82 70 78 Respiratory Rate 17 17 Blood Pressure [Right Arm] 120/48 L 122/78 122/78 Blood Pressure Mean [Right Arm] 72 92 92 Blood Pressure Source [Right Arm] Automatic Cuff Automatic Cuff Automatic Cuff Blood Pressure Position [Right Arm] Sitting Sitting Sitting 02 Sat by Pulse Oximetry 97 98 98 Oxygen Delivery Method Room Air Room Air Room Air - Lab Data Lab Results 02/15/20 11:22: WBC 8.1, RBC 5.23, Hgb 15.6, Hct 47.6 H, MCV 91.1, MCH 29.7, MCHC 32.6, RDW 13.9, Plt Count 376, MPV 7.3 L, Neut % (Auto) 67.7, Lymph % (Auto) 25.2, [place] % (Auto) 3.8, Eos % (Auto) 2.8, Baso % (Auto) 0.4, Neut # (Auto) 5.5, Lymph # (Auto) 2.0, [place] # (Auto) 0.3, Eos # (Auto) 0.2, Baso # (Auto) 0.0 02/15/20 11:22: Sodium 139, Potassium 4.2, Chloride 104, Carbon Dioxide 28, Anion Gap 11.2, BUN 12, Creatinine 0.90, Estimated Creat Clear 152, Estimated GFR 79, Est GFR ( Amer) 96, Glucose 103 H, Calcium 9.9, Total Bilirubin 0.5, AST 21, ALT 22, Alkaline Phosphatase 90, Total Protein 8.0, Albumin 4.2, Globulin 3.8 H, Albumin/Globulin Ratio 1.1, Lipase 50 Result diagrams: 02/15/20 11:22 02/15/20 11:22 Orders (Tests/Meds): ED MEDICATIONS Discontinued Medications Generic Name Dose Route Start Last Admin Trade Name Freq PRN Reason Stop Dose Admin Ondansetron HCl 4 mg 02/15/20 10:28 02/15/20 10:37 Ondansetron 4mg Odt SL 02/15/20 10:29 4 mg ONCE ONE Administration Medical Decision Narrative: In summary this is a 19-year-old female 7 days post op from a laparoscopic cholecystectomy. Patient clinically stable on arrival. Vital signs within normal limits. Overall presentation is most consistent with normal postoperative course. Expect to have mild GI upset, diarrhea, nausea. Wounds are clean, dry, well healing. Doubt seroma or cellulitis. Will obtain CBC, CMP, lipase to assess for any obstructive pathology. Patient given 4 mg of Zofran ODT. Laboratory results are generally unremarkable. No leukocytosis. No elevation in AST, ALT, alk phos, bilirubin, lipase. On reassessment patient continued to feel well in the emergency department. She was able to tolerate oral intake. Counseled that this is likely normal postoperative course for laparoscopic cholecystectomy. Given prescription for Zofran. Recommended to follow-up with her primary care physician and her surgeon. Stable for discharge. General Adult HPI - General Chief complaint: Recheck/Abnormal Lab/Rx Stated complaint: post op 02/08/20, incesion open Time Seen by Provider: 02/15/20 10:28 Mode of Ar
[2020-02-15 11:26] VITALS: BP 122/78; PULSE 70; RESP 17; O2SAT 98
[2020-02-15 11:29] LABS: Basophils % 0.4 % (0.1-2.0); Eosinophils # 0.2 K/mm3 (0.0-0.4); Eosinophils % 2.8 % (0.1-12.0); Hematocrit 47.6 % (37.0-47.0); Hemoglobin 15.6 g/dL (12.2-16.2); Lymphocytes % 25.2 % (10-50); Mean Corpuscular HGB Conc 32.6 g/dL (31.8-35.4); Mean Corpuscular Hemoglobin 29.7 pg (27.0-31.2); Mean Corpuscular Volume 91.1 fl (81-99); Mean Platelet Volume 7.3 fl (7.4-10.4); Monocytes # 0.3 K/mm3 (0.1-1.0); Monocytes % 3.8 % (1.7-9.3); Neutrophils # 5.5 K/mm3 (1.8-7.8); Neutrophils % 67.7 % (37.0-80.0); Platelet Count 376 K/mm3 (142-424); Red Blood Count 5.23 M/mm3 (4.20-5.40); Red Cell Distribution Width 13.9 % (11.5-17.5); White Blood Count 8.1 K/mm3 (4.8-10.8)
[2020-02-15 11:36] LABS: Chloride 104 mmol/L (98-107)
[2020-02-15 11:37] LABS: Potassium 4.2 mmoL/L (3.5-5.1); Sodium 139 mmol/L (136-145)
[2020-02-15 11:39] LABS: Alanine Aminotransferase 22 U/L (12-78); Aspartate Amino Transferase 21 U/L (14-36); Blood Urea Nitrogen 12 mg/dl (7-17); Creatinine Clearance Estimated 152 mL/min (50-200); Estimated Glomerular Filt Rate 79 ml/min (>60); GFR (African American) 96 ML/MIN (>60)
[2020-02-15 11:40] LABS: Albumin Level 4.2 g/dl (3.5-5.0); Albumin/Globulin Ratio 1.1 (1.1-1.8); Alkaline Phosphatase 90 U/L (38-126); Anion Gap 11.2 mEq/L (5-15); Bilirubin,Total 0.5 mg/dl (0.2-1.3); Calcium 9.9 mg/dl (8.4-10.2); Carbon Dioxide 28 mmol/L (22.0-30.0); Globulin 3.8 g/dL (1.3-3.2); Glucose 103 mg/dl (74-100); Lipase 50 U/L (23-300)
[2020-02-15 11:46] VITALS: BP 122/78; PULSE 78; O2SAT 98
[2020-02-15 12:16] VITALS: BP 119/72; PULSE 76; RESP 17; TEMP 36.7; O2SAT 98
== END 2020-02-15 12:22 | disposition home or self-care (01) ==
PROVIDERS: Emergency Provider Emergency Medicine
DX: G89.18 Other acute postprocedural pain (principal); R11.0 Nausea; Z90.49 Acquired absence of other specified parts of digestive tract; R10.10 Upper abdominal pain, unspecified
CPT/HCPCS: 80053; 83690; 85025; 96374; 99282

== ENCOUNTER 2020-04-09 06:26 | Emergency (ER) | payer OTHER, SELFPAY ==
[2020-04-09 06:28] VITALS: BP 149/75; PULSE 68; RESP 16; TEMP 36.9; O2SAT 99; BMI 36.0
--- NOTE | 2020-04-09 06:46 | CT_ITS ---
PROCEDURE: CT ABDOMEN PELVIS W CON CLINICAL INDICATION: epigastric pain, nausea and chills COMPARISON: CT CT ABDOMEN PELVIS W CON from 02/02/2020 TECHNIQUE: IV Contrast: 75ML OPTIRAY 350 Oral Contrast none given Axial images obtained with sagittal and coronal reformats. All CT scans at the facility use one or more dose reduction, viz: automated exposure control, ma/kV adjustment per patient size (including targeted exams where dose is matched to indication, i.e. head), or iterative reconstruction technique. FINDINGS: Lower thorax: No acute finding ABDOMEN: Liver: No masses or biliary dilatation. Gallbladder: Post cholecystectomy Pancreas: No masses or peripancreatic fluid collections. Spleen: unremarkable Adrenals: unremarkable Kidneys/ureters: The kidneys are normal in size and show symmetrical function both appearing normal. ABDOMEN & PELVIS: Stomach bowel: The stomach and small bowel appear normal. There is moderate scattered stool and gas seen throughout the colon. There couple of tiny diverticuli sigmoid colon but no evidence of diverticulitis. Peritoneum: There is a small umbilical hernia containing fat only. Lymph nodes: No enlarged lymph nodes apparent. Vasculature: No evidence of abdominal aortic aneurysm. No retroperitoneal hemorrhage evident. Bones: No acute fracture PELVIS: Reproductive: The uterus is normal in size and in the midline. There is a small stable left ovarian cyst measuring 3.0 x 3.3 by 2.8 cm. Bladder: There is no free fluid in the pelvis. The urinary bladder is partially decompressed but otherwise appears normal. Appendix: Unremarkable. No distention or periappendiceal phlegmonous change. IMPRESSION: No acute abdominal or pelvic pathology identified Dictated by: Dr. Jamil Roman MD 04/09/2020 08:15 Dr. Jamil Roman MD in [facility] 04/09/2020 08:15
[2020-04-09 06:54] LABS: Microscopic, Urine URINE MICROSCOPIC (MICROSCOPIC)
[2020-04-09 06:58] LABS: Appearance,Urine CLEAR (Clear); Basophils % 0.3 % (0.1-2.0); Bilirubin,Urine Negative (Negative); Blood, Urine Negative (Negative); Color,Urine YELLOW (Yellow); Eosinophils # 0.3 K/mm3 (0.0-0.4); Glucose,Urine (UA) Negative (Negative); Hematocrit 47.4 % (37.0-47.0); Hemoglobin 15.3 g/dL (12.2-16.2); Ketones,Urine Negative (Negative); Leukocyte Esterase,Urine 1+ (Negative); Lymphocytes # 3.3 K/mm3 (0.7-4.5); Lymphocytes % 31.4 % (10-50); Mean Corpuscular HGB Conc 32.2 g/dL (31.8-35.4); Mean Corpuscular Hemoglobin 29.5 pg (27.0-31.2); Mean Corpuscular Volume 91.7 fl (81-99); Mean Platelet Volume 8.3 fl (7.4-10.4); Monocytes # 0.5 K/mm3 (0.1-1.0); Monocytes % 4.6 % (1.7-9.3); Neutrophils # 6.4 K/mm3 (1.8-7.8); Neutrophils % 60.6 % (37.0-80.0); Nitrate,Urine Negative (Negative); PH,Urine 5.5 (5.0-8.5); Platelet Count 379 K/mm3 (142-424); Protein,Urine Negative (Negative); Red Blood Count 5.17 M/mm3 (4.20-5.40); Red Cell Distribution Width 13.6 % (11.5-17.5); Specific Gravity, Urine >= 1.030 (1.005-1.030); Urobilinogen,Urine 0.2 EU/dl (0.2); White Blood Count 10.6 K/mm3 (4.8-10.8)
[2020-04-09 07:03] LABS: Chloride 107 mmol/L (98-107); Potassium 3.7 mmoL/L (3.5-5.1); Sodium 140 mmol/L (136-145)
[2020-04-09 07:05] LABS: Amylase 73 U/L (30-110); Blood Urea Nitrogen 9 mg/dl (7-17); Creatinine Clearance Estimated 149 mL/min (50-200); Estimated Glomerular Filt Rate 79 ml/min (>60); GFR (African American) 96 ML/MIN (>60)
[2020-04-09 07:06] LABS: Alanine Aminotransferase 14 U/L (12-78); Albumin/Globulin Ratio 1.2 (1.1-1.8); Alkaline Phosphatase 97 U/L (38-126); Anion Gap 9.7 mEq/L (5-15); Aspartate Amino Transferase 23 U/L (14-36); Bilirubin,Total 0.4 mg/dl (0.2-1.3); Calcium 9.2 mg/dl (8.4-10.2); Carbon Dioxide 27 mmol/L (22.0-30.0); Globulin 3.4 g/dL (1.3-3.2); Glucose 104 mg/dl (74-100); Lipase 77 U/L (23-300); Total Protein,Serum 7.4 g/dl (6.3-8.2)
[2020-04-09 07:08] LABS: Urine Pregnancy, HCG Qual. Negative (Negative)
[2020-04-09 07:11] LABS: C-Reactive Protein 9.6 mg/L (0-4)
[2020-04-09 07:16] LABS: RBC,Urine Occasional #/hpf (0-3); Squamous Epithelial Cell,Urine Occasional #/hpf (0-5)
[2020-04-09 07:17] LABS: Bacteria,Urine Trace /lpf
[2020-04-09 07:39] LABS: Erythrocyte Sedimentation Rate 11 mm/hr (0-20)
--- NOTE | 2020-04-09 07:44 | HMH.EDNVD ---
ED Disposition Clinical Impression: Obesity (BMI 30-39.9) Gastritis Qualifiers: Gastritis type: unspecified gastritis Chronicity: acute Gastritis bleeding: without bleeding Qualified Code(s): K29.00 - Acute gastritis without bleeding Disposition: Home, Self-Care Condition on Discharge: Good Instructions: DI for Acute Abdomen Additional Instructions: see pcp for follow up and possible u/s of rt breast Prescriptions: Pantoprazole Sodium [Protonix 40mg tablet] 40 mg PO DAILY #30 tab Transmission Status: Pending to [facility] #[id number] Referrals: PCP,No [Primary Care Provider] - - Critical Care Critical Care Time: No Attestation: On 04/09/20, the high probability of a clinically significant, sudden or life threatening deterioration of the following system(s) required my full and direct attention, intervention and personal management. The time I documented below is in addition to time spent performing reported procedures but includes the following listed in this critical care notation. Medical Decision Making - Medical Records Medical records reviewed: Yes: I reviewed the patient's medical records. - Daniel Inquiry Pt receiving controlled substance: No Vital Signs: 04/09/20 06:28 Temperature 98.5 F Temperature Source Oral Pulse Rate [Left Radial] 68 Respiratory Rate 16 Blood Pressure [Right Arm] 149/75 H Blood Pressure Mean [Right Arm] 99 Blood Pressure Source [Right Arm] Automatic Cuff Blood Pressure Position [Right Arm] Sitting 02 Sat by Pulse Oximetry 99 Oxygen Delivery Method Room Air - Lab Data Lab results reviewed: Yes: I reviewed the patient's lab results. Lab Results 04/09/20 06:45: Urine Color Yellow, Urine Appearance Clear, Urine pH 5.5, Ur Specific [place] >= 1.030, Urine Protein Negative, Urine Glucose (UA) Negative, Urine Ketones Negative, Urine Blood Negative, Urine Nitrate Negative, Urine Bilirubin Negative, Urine Urobilinogen 0.2, Ur Leukocyte Esterase 1+ A, Urine RBC Occasional, Urine WBC 3-5, Ur Squamous Epith Cells Occasional, Urine Bacteria Trace 04/09/20 06:45: WBC 10.6, RBC 5.17, Hgb 15.3, Hct 47.4 H, MCV 91.7, MCH 29.5, MCHC 32.2, RDW 13.6, Plt Count 379, MPV 8.3, Neut % (Auto) 60.6, Lymph % (Auto) 31.4, [place] % (Auto) 4.6, Eos % (Auto) 3.0, Baso % (Auto) 0.3, Neut # (Auto) 6.4, Lymph # (Auto) 3.3, [place] # (Auto) 0.5, Eos # (Auto) 0.3, Baso # (Auto) 0.0, ESR 11 04/09/20 06:45: Urine HCG, Qual Negative 04/09/20 06:45: Sodium 140, Potassium 3.7, Chloride 107, Carbon Dioxide 27, Anion Gap 9.7, BUN 9, Creatinine 0.90, Estimated Creat Clear 149, Estimated GFR 79, Est GFR ( Amer) 96, Glucose 104 H, Calcium 9.2, Total Bilirubin 0.4, AST 23, ALT 14, Alkaline Phosphatase 97, C-Reactive Protein 9.6 H, Total Protein 7.4, Albumin 4.0, Globulin 3.4 H, Albumin/Globulin Ratio 1.2, Amylase 73, Lipase 77 Result diagrams: 04/09/20 06:45 04/09/20 06:45 Orders (Tests/Meds): ED MEDICATIONS Generic Name Dose Route Start Last Admin Trade Name Freq PRN Reason Stop Dose Admin Sodium Chloride 1,000 mls @ 999 mls/hr 04/09/20 07:00 04/09/20 07:40 Sod Chlor 0.9% 1000ml Bag IV 04/09/20 08:00 999 mls/hr .Q1H1M TILA Administration Sodium Chloride 8 ml 04/09/20 06:47 04/09/20 07:16 Sodium Chloride 0.9% 10ml Vial IV 05/09/20 06:46 8 ml NEEDED PRN Administration dilute pepcid Discontinued Medications Generic Name Dose Route Start Last Admin Trade Name Freq PRN Reason Stop Dose Admin Famotidine 20 mg 04/09/20 06:47 04/09/20 07:16 Famotidine 20mg/2ml Vial IV 04/09/20 06:48 20 mg ONCE ONE Administration Metoclopramide HCl 10 mg 04/09/20 06:47 04/09/20 07:16 Metoclopramide Hcl 10mg/2ml Vial IVP 04/09/20 06:48 10 mg ONCE ONE Administration Ondansetron HCl 4 mg 04/09/20 06:47 04/09/20 07:16 Ondansetron 4mg/2ml Vial IV 04/09/20 06:48 4 mg ONCE ONE Administration ORDERS Category Date Time Status CT abdomen pelvis w co
[2020-04-09 08:12] VITALS: BP 135/86; PULSE 78; RESP 16; TEMP 36.6; O2SAT 98
== END 2020-04-09 08:14 | disposition home or self-care (01) ==
PROVIDERS: Emergency Provider Emergency Medicine
DX: K29.00 Acute gastritis without bleeding (principal); K21.9 Gastro-esophageal reflux disease without esophagitis; E66.9 Obesity, unspecified
CPT/HCPCS: 74177; 80053; 81001; 81025; 82150; 83690; 85025; 85651; 86140; 87086; 96365; 96375; 99283; J2405

== ENCOUNTER 2020-05-22 18:15 | Emergency (ER) | payer OTHER, SELFPAY ==
[2020-05-22 18:16] VITALS: BP 140/91; PULSE 63; RESP 18; TEMP 36.8; O2SAT 100; BMI 34.3
--- NOTE | 2020-05-22 18:59 | HMH.EDUTC ---
[facility] [place] Disposition Clinical Impression: Rash Disposition: Home, Self-Care Condition on Discharge: Good Instructions: DI for Rash, Hydroxyzine, Prednisone Additional Instructions: Do not scratch rash Take medication as prescribed FOllow up with your Family Doctor for further evaluation and treatment if needed Straight to ER if any life threatening symptoms Prescriptions: hydrOXYzine HCL [Hydroxyzine HCl] 25 mg PO TID PRN #15 tab PRN Reason: Itching Transmission Status: Pending to [facility] # predniSONE [Prednisone 20mg Tab] 20 mg PO BID 5 Days #10 tab Transmission Status: Pending to [facility] # Referrals: PCP,No [Primary Care Provider] - As needed Time of Disposition: 19:22 Medical Decision Making - Daniel Inquiry Pt receiving controlled substance: Dara Sanchez was queried for this patient: No Vital Signs: 05/22/20 18:16 Temperature 98.2 F Temperature Source Oral Pulse Rate [Left Radial] 63 Respiratory Rate 18 Blood Pressure [Right Arm] 140/91 H Blood Pressure Mean [Right Arm] 107 Blood Pressure Source [Right Arm] Automatic Cuff Blood Pressure Position [Right Arm] Sitting 02 Sat by Pulse Oximetry 100 Oxygen Delivery Method Room Air Medical Decision Narrative: :Patient denies [facility] [place] HPI - General Stated complaint: Possible scabbies Time Seen by Provider: 05/22/20 18:59 Mode of Arrival: Ambulatory Source of Information: Patient Limitations: No Limitations Description of Symptoms (Recalled from Triage Doc. by RN): skin rash that she thinks is scabies HEENT Symptoms (Recalled from RN notes): Yes Resp Symptoms (Recalled from RN notes): No Skin Symptoms (Recalled from RN notes): No MS Symptoms (Recalled from RN notes): No Functional Status (Recalled from RN notes): wnl - History of Present Illness Provider Complaint: Patient states that she has a history of scabies State that she had a refill left on her cream and she used it a couple days ago and it hasnt helped States that she is still itching, States that she had to go back last time and she got two pills that helped to stop the itching and it cleared up but now is back - Related Data Previous Rx's Medication Instructions Recorded Pantoprazole Sodium [Protonix 40mg 40 mg PO DAILY #30 tab 04/09/20 tablet] hydrOXYzine HCL [Hydroxyzine HCl] 25 mg PO TID PRN #15 tab 05/22/20 predniSONE [Prednisone 20mg 20 mg PO BID 5 Days #10 tab 05/22/20 Tab] Allergies Allergy/AdvReac Type Severity Reaction Status Date / Time No Known Allergies Allergy Verified 02/05/20 13:25 - Worker's Comp Is this a Worker's Comp case?: No [facility] History - Hepatitis A Screen Drug use history?: No High risk sexual behaviors?: No History of sexually transmitted infection?: No Currently employed?: No Childcare worker?: No Do you have indoor plumbing?: Yes Do you have electricity?: Yes Attestation statement:: This patient has been screened for Hepatitis A risk factors. I have reviewed the patient's past medical history: Yes Medical History: Denies:: Cancer, Diabetes Mellitus Type 1, Diabetes Mellitus Type 2, Hypertension, Internal Pacemaker, MRSA, Seizures Other Medical History: Denies: Blood Transfusion Reaction Comment: Obesity Laterality Cases: Bilateral: Tonsillectomy Other Surgeries: No: , Pacemaker Amputation: No Fractures: No - Social History Smoking Status: Never smoker Tobacco Type: cigarettes Alcohol Intake: never Alcohol Intake Frequency:: holidays/special occasions only Substance Use Type: marijuana (Daily) Occupational Status: unemployed Housing: house Family Hx:: No significant family history ROS Obtained: Yes All systems reviewed & no additional complaints, Yes Systems reviewed as appropriate & no additional complaints - Constitutional Constitutional: Reports system reviewed and no additional complaints, except as docu - Integumentary/Breasts Skin/Breast: Reports
[2020-05-22 19:25] VITALS: BP 140/91; PULSE 63; RESP 18; TEMP 36.8; O2SAT 100
== END 2020-05-22 19:29 | disposition home or self-care (01) ==
PROVIDERS: Emergency Provider Nurse Practitioner
DX: R21 Rash and other nonspecific skin eruption (principal); R03.0 Elevated blood-pressure reading, without diagnosis of hypertension; F12.10 Cannabis abuse, uncomplicated
CPT/HCPCS: 99202; G0463

== ENCOUNTER 2020-12-03 11:53 | Emergency (ER) | payer OTHER, SELFPAY ==
[2020-12-03 11:53] VITALS: BP 143/96; PULSE 68; RESP 20; TEMP 36.9; O2SAT 96; BMI 36.6
--- NOTE | 2020-12-03 13:05 | HMH.EDUTC ---
[facility] [place] Clinical Impression: Viral syndrome, Gastroenteritis Disposition: Home, Self-Care Condition on Discharge: Good Instructions: DI for Viral Gastroenteritis -- Adult, Preventing the Spread of Coronavirus Discharge Instructions Additional Instructions: Drink plenty of fluids. Take tylenol for pain or fever. Follow up with your regular doctor. GO TO THE ER FOR ANY WORSENING SYMPTOMS Prescriptions: Ondansetron [Zofran 4mg ODT] 4 mg PO Q8HP PRN #12 tab PRN Reason: Nausea Transmission Status: Received by [facility] #[id number] Referrals: Provider,Referral, [Primary Care Provider] - Forms: Work/School Release Time of Disposition: 13:14 Medical Decision Making - Medical Records Medical records reviewed: No: I reviewed the patient's medical records. - Daniel Inquiry Pt receiving controlled substance: No Vital Signs: 12/03/20 11:53 12/03/20 13:35 Temperature 98.5 F 98.5 F Temperature Source Oral Pulse Rate 68 Pulse Rate [Left Radial] 68 Respiratory Rate 20 20 Blood Pressure 143/96 H Blood Pressure [Right Arm] 143/96 H Blood Pressure Mean [Right Arm] 111 Blood Pressure Source Automatic Cuff Blood Pressure Source [Right Arm] Automatic Cuff Blood Pressure Position Sitting Blood Pressure Position [Right Arm] Sitting 02 Sat by Pulse Oximetry 96 Oxygen Delivery Method Room Air [facility] [place] HPI - General Stated complaint: nausea Time Seen by Provider: 12/03/20 12:25 Mode of Arrival: Ambulatory Source of Information: Patient Limitations: No Limitations Description of Symptoms (Recalled from Triage Doc. by RN): c/o nausea and vomiting and broke out into a cold sweat about 30 minutes ago HEENT Symptoms (Recalled from RN notes): No Resp Symptoms (Recalled from RN notes): No Skin Symptoms (Recalled from RN notes): No MS Symptoms (Recalled from RN notes): No Functional Status (Recalled from RN notes): wnl - History of Present Illness Provider Complaint: She reports just not feeling well for the past 2 days. She has chilled at times and then she has broke out in a sweat for not reason at times. She denies any cough, congestion. She has had n/v/d since earlier this morning. - Related Data Previous Rx's Medication Instructions Recorded Pantoprazole Sodium [Protonix 40mg 40 mg PO DAILY #30 tab 04/09/20 tablet] hydrOXYzine HCL [Hydroxyzine HCl] 25 mg PO TID PRN #15 tab 05/22/20 predniSONE [Prednisone 20mg 20 mg PO BID 5 Days #10 tab 05/22/20 Tab] Ondansetron [Zofran 4mg ODT] 4 mg PO Q8HP PRN #12 tab 12/03/20 Allergies Allergy/AdvReac Type Severity Reaction Status Date / Time No Known Allergies Allergy Verified 02/05/20 13:25 - Worker's Comp Is this a Worker's Comp case?: No [facility] History - Hepatitis A Screen Drug use history?: No High risk sexual behaviors?: No History of sexually transmitted infection?: No Currently employed?: No Childcare worker?: No Do you have indoor plumbing?: Yes Do you have electricity?: Yes Attestation statement:: This patient has been screened for Hepatitis A risk factors. I have reviewed the patient's past medical history: Yes Medical History: Denies:: Cancer, Diabetes Mellitus Type 1, Diabetes Mellitus Type 2, Hypertension, Internal Pacemaker, MRSA, Seizures Other Medical History: Denies: Blood Transfusion Reaction Comment: Obesity Laterality Cases: Bilateral: Tonsillectomy Other Surgeries: No: , Pacemaker Amputation: No Fractures: No - Social History Smoking Status: Never smoker Tobacco Type: cigarettes Alcohol Intake: never Alcohol Intake Frequency:: holidays/special occasions only Substance Use Type: marijuana (Daily) Occupational Status: unemployed Housing: house Family Hx:: No significant family history ROS Obtained: Yes All systems reviewed & no additional complaints - Constitutional Constitutional: Reports system reviewed and no additional complaints, except as docu -
[2020-12-03 13:35] VITALS: BP 143/96; PULSE 68; RESP 20; TEMP 36.9; O2SAT 96
[2020-12-04 14:53] LABS: UTC Pregnancy Test, Urine Negative (Negative)
== END 2020-12-03 13:36 | disposition home or self-care (01) ==
PROVIDERS: Emergency Provider Nurse Practitioner Family
DX: K52.9 Noninfective gastroenteritis and colitis, unspecified (principal); B34.9 Viral infection, unspecified; Z20.822 Contact with and (suspected) exposure to COVID-19
CPT/HCPCS: 81025; 99203; G0463; U0003